=== PATIENT | male | born 1990 | race Caucasian/White ===

== ENCOUNTER 2020-07-06 05:29 | Emergency (ER) | payer OTHER ==
[~2020-07-06] VITALS: Ht 188 cm; Wt 83.9 kg
[~2020-07-06 05:29] MED LIST: AUGMENTIN 875875 MG PO; FLEXERIL PO; ULTRAM 50MG TAB50 MG PO
[2020-07-06 06:32] LABS: HEMATOCRIT 45.6 % (42.0-52.0); HEMOGLOBIN 15.5 gm/dL (14.0-18.0); MCH 31.1 pg (26.0-34.0); MCHC 33.9 g/dL (28.0-37.0); MCV 91.9 fL (80.0-100.0); MPV 8.1 fl. (7.2-11.1); RBC 4.96 mil/uL (4.50-6.00); WBC 11.5 thou/uL (4.0-11.0)
[2020-07-06] MEDS ORDERED: HYDROCODON-ACE1 EAC7 PO (08:21)
[2020-07-06] MEDS ORDERED: CLEOCIN HCL300 MG PO (08:21)
[2020-07-06 08:30] VITALS: BP 123/86
== END 2020-07-06 08:30 | disposition home or self-care (01) ==
LOC: M.ERS 05:29
PROVIDERS: Personal Emergency Response Attendant
DX: K05.6 Periodontal disease, unspecified (principal); A69.1 Other Vincent's infections; K03.6 Deposits [accretions] on teeth; R59.1 Generalized enlarged lymph nodes